=== PATIENT | female | born 1980 | race Caucasian/White ===

== ENCOUNTER 2017-03-28 16:40 | Emergency (ER) | payer MEDICAID, OTHER ==
[~2017-03-28] VITALS: Ht 165.1 cm; Wt 59.0 kg
--- NOTE | 2017-03-28 16:50 | NUR ---
PRESENTS TO ER C/O ON/OFF BLURRY VISION X 3 DAYS, HEADACHE X 2 WEEKS. PATIENT IS A/O X 3. BREATHING EVEN AND UNLABORED. NO SOB. NAD, NO NEURO DEFICITS. VITALS STABLE. SAFETY AND COMFORT MEASURES IN PLACE. AWAITING MD ORDERS.
[2017-03-28 18:10] LABS: BASOPHILS % (AUTO) 0.7 % (0.0-2.0); EOSINOPHILS # (AUTO) 0.1 /CMM (0.0-0.7); HEMATOCRIT 37 % (33-45); HEMOGLOBIN 12.9 g/dL (11.5-14.8); LYMPHOCYTES # (AUTO) 2.4 /CMM (0.8-4.8); LYMPHOCYTES % (AUTO) 36.7 % (20.0-44.0); MEAN CORPUSCULAR HEMOGLOBIN 33 PG (26.0-33.0); MEAN CORPUSCULAR HGB CONC 35 g/dl (31.0-36.0); MEAN CORPUSCULAR VOLUME 94 fL (82-100); MONOCYTES # (AUTO) 0.4 /CMM (0.1-1.30); MONOCYTES % (AUTO) 5.4 % (2.0-12.0); NEUTROPHILS # (AUTO) 3.7 /CMM (1.8-8.9); NEUTROPHILS % (AUTO) 56.2 % (43.0-81.0); PLATELET COUNT (AUTO) 239 /CMM (150-450); RDW COEFFICIENT OF VARIATION 12.5 (11.5-15.0); RED BLOOD CELL COUNT(AUTO) 3.93 MIL/uL (4.0-5.2); WHITE BLOOD COUNT (AUTO) 6.6 K/uL (4.3-11.0)
[2017-03-28] MEDS ORDERED: CT SWABBABLE VALVE TRANS SET 1 EA INFUS.SET MC ONE (18:14)
[2017-03-28] MEDS ORDERED: IOHEXOL-350 100 ML VIAL IV ONE (18:14)
[2017-03-28] MEDS ORDERED: IV NS 0.9% 500 ML IV ONE (18:15)
--- NOTE | 2017-03-28 18:15 | NUR ---
PATIENT TAKEN TO CT IN STABLE CONDITION.
[2017-03-28 18:28] LABS: ALBUMIN 4.1 g/dL (3.4-5.0); BILIRUBIN,TOTAL 0.5 mg/dL (0.2-1.0); CALCIUM, SERUM 9.3 mg/dL (8.5-10.1); CREATININE 0.8 mg/dL (0.6-1.3); TOTAL PROTEIN, SERUM 7.6 g/dL (6.4-8.2)
[2017-03-28 18:34] LABS: INR 0.92 (0.87-1.13)
--- NOTE | 2017-03-28 18:40 | NUR ---
PATIENT RETURNED FROM CT IN STABLE CONDITION.
--- NOTE | 2017-03-28 19:17 | NUR ---
REPORT GIVEN TO ROBERTO STEVENS FOR KATHIE.
[2017-03-28 19:50] VITALS: BP 120/68
--- NOTE | 2017-03-28 19:50 | NUR ---
IV removed. Catheter intact and site benign. Pressure and 4x4 applied to site. No bleeding noted. Patient discharged to home in stable condition. Written and verbal after care instructions given. Patient verbalizes understanding of instruction. Patient is ambulatory with steady gait, accompanied by family. VSS. Nad on dc. No further complaints.
== END 2017-03-28 19:51 | disposition home or self-care (01) ==
LOC: ER 16:42
DX: R51 Headache (principal); R55 Syncope and collapse; H53.9 Unspecified visual disturbance; F10.10 Alcohol abuse, uncomplicated; Z98.890 Other specified postprocedural states
CPT/HCPCS: 36415; 70496; 71045; 80053; 85025; 85730; 93005; 99285; A4606; J7040; Q9967; Z7610